=== PATIENT | female | born 1940 | race Hispanic/Latino ===

== ENCOUNTER 2018-04-14 12:17 | Observation (INO) | payer MEDICARE ==
[~2018-04-14] VITALS: Ht 165.1 cm; Wt 78.1 kg
[2018-04-14] MEDS ORDERED: ASPIRIN 325 MG TABLET ONE (12:47)
[2018-04-14] MEDS ORDERED: NITROGLYCERIN 1GM/1 INCH PACKET TD ONE ×2 (12:47→14:10)
[2018-04-14 13:06] LABS: BASOPHILS % (AUTO) 0.5 % (0.0-5.0); EOSINOPHILS % (AUTO) 3.5 % (0.0-8.0); HEMATOCRIT 49.4 % (36-48); LYMPHOCYTES % (AUTO) 41.1 % (21.0-51.0); MEAN CORPUSCULAR HEMOGLOBIN 30.4 pg (27.0-33.0); MEAN CORPUSCULAR HGB CONC 33.4 g/dL (32.0-36.0); MEAN CORPUSCULAR VOLUME 90.9 fL (79-99); MONOCYTES % (AUTO) 9.5 % (3.0-13.0); NEUTROPHILS % (AUTO) 45.4 % (40.0-77.0); PLATELET COUNT (AUTO) 122 K/uL (130-400); RED BLOOD CELL COUNT(AUTO) 5.44 MIL/uL (4.00-5.50); RED CELL DISTRIBUTION WIDTH 13.8 % (11.0-15.5); WHITE BLOOD COUNT (AUTO) 6.6 K/uL (4.8-10.8)
[2018-04-14 13:13] LABS: POTASSIUM 3.6 mmol/L (3.5-5.1)
[2018-04-14] MEDS ORDERED: LACTULOSE 20 GM/30 ML UDCUP PO PRN (15:45)
[2018-04-14] MEDS ORDERED: ACETAMINOPHEN 325 MG TAB PO PRN (15:45)
[2018-04-14] MEDS ORDERED: CLONIDINE HCL 0.1 MG TABLET PO PRN (15:45)
[2018-04-14] MEDS ORDERED: LABETALOL 20 MG/4 ML DISP.SYRIN IV PRN (15:45)
[2018-04-14] MEDS ORDERED: ONDANSETRON HCL 4 MG/2 ML VIAL IV PRN (15:45)
[2018-04-14] MEDS ORDERED: LABETALOL HCL 5 MG/ML 20ML VIAL IV PRN (15:50)
[2018-04-14] MEDS ORDERED: CLONIDINE HCL 0.1 MG TABLET ONE (17:47)
[2018-04-14 19:09] LABS: CREATINE KINASE, TOTAL 64 U/L (21-232); MYOGLOBIN 53 ng/mL (10-92); TROPONIN I < 0.04 ng/mL (0.00-0.06)
[2018-04-14] MEDS ORDERED: ACETAMINOPHEN 325 MG TAB ONE (22:11)
[2018-04-15] VITALS (10 sets, daily range): BP systolic 125–190; BP diastolic 49–99
--- NOTE | 2018-04-15 00:30 | NUR ---
Assessment Patient arrived on the unit. Ambulated from ED bed to bed in room 203. Ambulates independently, steady. Denies chest pain or sob. Patients vitals upon arrival WNL. Oriented patient to environment. Patient demonstrated use of call light. SCD's in place. Will continue to monitor.
[2018-04-15 04:16] LABS: CARBON DIOXIDE 25 mmol/L (21-32); CHLORIDE 108 mmol/L (101-111); CHOLESTEROL 255 mg/dL (<200); CREATINE KINASE, TOTAL 53 U/L (21-232); GLOMERULAR FILTR. RATE CALC 57 mL/min (>60); GLUCOSE,RANDOM 106 mg/dL (70-105); HDL CHOLESTEROL 53 mg/dL (35-85); HEMOGLOBIN A1C 6.1 % (4.0-6.0); LDL DIRECT 180 mg/dL (0-99); MYOGLOBIN 58 ng/mL (10-92); SODIUM SERUM 143 mmol/L (136-145); TRIGLYCERIDES 139 mg/dL (30-200); TROPONIN I < 0.04 ng/mL (0.00-0.06); UREA NITROGEN, BLOOD 25 mg/dL (7-18)
[2018-04-15 04:30] LABS: HEMATOCRIT 44.2 % (36-48); MEAN CORPUSCULAR HGB CONC 33.1 g/dL (32.0-36.0); MEAN CORPUSCULAR VOLUME 90.7 fL (79-99); NUCLEATED RED BLOOD CELLS 0.1 % (0.0-0.19); PLATELET COUNT (AUTO) 116 K/uL (130-400); RED BLOOD CELL COUNT(AUTO) 4.88 MIL/uL (4.00-5.50); RED CELL DISTRIBUTION WIDTH 13.4 % (11.0-15.5); WHITE BLOOD COUNT (AUTO) 7.3 K/uL (4.8-10.8)
--- NOTE | 2018-04-15 08:15 | NUR ---
AM ASSESSMENT PT SITTING IN BED, WATCHING TV. FAMILY @ BEDSIDE. SPA SPEAKING ONLY. A/O X 3. NO SOB. NO DISTRESS NOTED. DENIES CHEST PAIN OR DISCOMFORT. DENIES PALPITATIONS. TELE: SB 50-SR 60s. DENIES N/V AND/OR DIARRHEA. RE: HOME MEDICATIONS, PT DENIES TAKING HOME MEDICATIONS. PRESCRIBED MEDICATIONS PICKED UP FROM PHARMACY IN 09/2017, BUT NEVER TOOK MEDICATIONS. RISK OF HTN REVIEWED IN [place]. STATES UNDERSTANDING. UP W/ASSISTANCE. INSTRUCTED TO CALL FOR ASSISTANCE. CALL BRANDON W/IN REACH.
[2018-04-15] MEDS: ASPIRIN 81 MG EC TAB PO SCH (08:27)
[2018-04-15] MEDS: PANTOPRAZOLE SODIUM 40 MG TABLET.DR PO SCH (08:27)
[2018-04-15] MEDS ORDERED: HYDRALAZINE HCL 20 MG/ML VIAL IV PRN (12:45)
--- NOTE | 2018-04-15 12:45 | NUR ---
MD VISIT DR GOMEZ & CAMERON RODRIGUEZ ENTERTAINMENT MANAGER IN TO SEE PT. PT'S DAUGHTER @ BEDSIDE; SPEAKS ENG. HTN RISKS & IMPORTANCE OF TAKING MEDICATIONS REVIEWED & REINFORCED BY DR GOMEZ. PLAN OF CARE REVIEWED.
[2018-04-15] MEDS: LISINOPRIL 5 MG TABLET PO SCH (13:25)
[2018-04-15] MEDS: HYDROCHLOROTHIAZIDE 25 MG TABLET PO SCH (13:25)
--- NOTE | 2018-04-15 16:35 | NUR ---
DC PLAN VISITED WITH PATIENT. PATIENT LIVES WITH DAUGHTER. INDEPENDENT ABLE TO TO PERFORM ADL'S. NO SERVICES OR DME'S. FEELS SAFE TO RETURN HOME. Addendum: 04/15/18 at 1638 by HALIE ABDUL RN CM Amended: Links added.
[2018-04-15] MEDS ORDERED: ATORVASTATIN CALCIUM 20 MG TABLET PO SCH (21:00)
[2018-04-16 03:49] LABS: HEMATOCRIT 42.6 % (36-48); MEAN CORPUSCULAR HEMOGLOBIN 31.6 pg (27.0-33.0); MEAN CORPUSCULAR HGB CONC 34.4 g/dL (32.0-36.0); MEAN CORPUSCULAR VOLUME 92.1 fL (79-99); PLATELET COUNT (AUTO) 113 K/uL (130-400); RED BLOOD CELL COUNT(AUTO) 4.62 MIL/uL (4.00-5.50); RED CELL DISTRIBUTION WIDTH 13.8 % (11.0-15.5); WHITE BLOOD COUNT (AUTO) 5.4 K/uL (4.8-10.8)
[2018-04-16 04:05] VITALS: BP 126/71
[2018-04-16 04:10] LABS: POTASSIUM 3.5 mmol/L (3.5-5.1)
--- NOTE | 2018-04-16 07:45 | NUR ---
ASSESSMENT ENCOUNTERED PT A&OX3, CALM COOPERATIVE AND DOES NOT APPEAR TO BE IN ANY DISTRESS NOR ANY NEURO DEFICITS PRESENT. PT DENIES PAIN, SOB, NAUSEA, DIZZINESS OR LIGHTHEADEDNESS. PT IS AMBULATORY, GAIT STEADY AND STRONG WITH STAND BY ASSIST. CALL LIGHT WITHIN REACH, FAMILY AT BEDSIDE.
[2018-04-16 07:49] VITALS: BP 188/103
[2018-04-16] MEDS: ASPIRIN 81 MG EC TAB PO SCH (08:39)
[2018-04-16] MEDS: HYDROCHLOROTHIAZIDE 25 MG TABLET PO SCH (08:39)
[2018-04-16] MEDS: PANTOPRAZOLE SODIUM 40 MG TABLET.DR PO SCH (08:39)
[2018-04-16] MEDS: LISINOPRIL 5 MG TABLET PO SCH (08:39)
--- NOTE | 2018-04-16 10:50 | NUR ---
DR GOMEZ AT BEDSIDE UPDATE GIVEN, ORDERS RECEIVED
--- NOTE | 2018-04-16 11:15 | NUR ---
DISCHARGE INSTRUCTIONS GIVEN, PIV REMOVED AND INTACT, DISCHARGED HOME TO FAMILY VEHICLE VIA WHEELCHAIR.
[2018-04-16] MEDS ORDERED: AEC81 PO (11:20)
[2018-04-16] MEDS ORDERED: LISI-613 PO (11:20)
[2018-04-16] MEDS ORDERED: ATOR20TA65 PO (11:20)
[2018-04-16] MEDS ORDERED: HYDR25TA PO (11:20)
[2018-04-16 11:25] VITALS: BP 184/82
== END 2018-04-16 12:05 | disposition home or self-care (01) ==
LOC: EDH 12:17 → EDHIP 15:37 → 2AH 04-15 00:19
PROVIDERS: ADMIT Internal Medicine Critical Care Medicine; ATTEND Internal Medicine Critical Care Medicine
DX: I16.0 Hypertensive urgency (principal); I10 Essential (primary) hypertension; E78.5 Hyperlipidemia, unspecified; E66.9 Obesity, unspecified; Z91.14 Patient's other noncompliance with medication regimen; Z79.82 Long term (current) use of aspirin; Z79.899 Other long term (current) drug therapy; Z82.49 Family history of ischemic heart disease and other diseases of the circulatory system
CPT/HCPCS: 36415 ×3; 71046; 80048 ×3; 80061; 82550 ×2; 83036; 83874 ×2; 84484 ×3; 85025; 85027 ×2; 93005; 96374; 99291; A4600; G0378 ×44; J0360; J3490